=== PATIENT | male | born 1995 | race Two or more races ===

== ENCOUNTER 2022-10-18 16:50 | Emergency (ER) | payer SELFPAY ==
[~2022-10-18] VITALS: Ht 170.2 cm; Wt 86.5 kg
[2022-10-18 18:00] VITALS: BP 139/86
[2022-10-18] MEDS ORDERED: ACETAMINOPHEN 325 MG TAB PO ONE ×2 (19:45→20:15)
== END 2022-10-18 20:12 | disposition home or self-care (01) ==
LOC: ER 16:52
DX: S61.512A Laceration without foreign body of left wrist, initial encounter (principal); W26.0XXA Contact with knife, initial encounter; Y93.89 Activity, other specified; Y92.89 Other specified places as the place of occurrence of the external cause; Y99.8 Other external cause status
CPT/HCPCS: 12001; 29125